=== PATIENT | male | born 1970 | race Caucasian/White ===

== ENCOUNTER 2023-12-08 08:02 | Day surgery (SDC) | payer MEDICARE, MEDICAID ==
[~2023-12-08] VITALS: Ht 182.9 cm; Wt 102.1 kg
[~2023-12-08 08:02] MED LIST: ATOR20TA50 PO; METO-289 PO; NITR0.4S29 SL; RANO500T3 PO
[2023-12-08] MEDS ORDERED: IODIXANOL 320MG/ML 100ML BTL IV ONE ×2 (10:00→10:13)
[2023-12-08] MEDS ORDERED: ANGIOMAX 250 MG VIAL IV ONE (10:03)
[2023-12-08] MEDS ORDERED: fentaNYL CITRATE 100 MCG/2 ML VL ONE (10:03)
[2023-12-08] MEDS ORDERED: HEPARIN SODIUM (PORCINE) 5000 UNITS/ML 1ML VIAL ONE (10:03)
[2023-12-08] MEDS ORDERED: VERAPAMIL 2.5MG/ML INJ 2ML VIAL IV ONE (10:03)
[2023-12-08] MEDS ORDERED: MIDAZOLAM HCL 2MG/2ML 2ml VIAL (1mg/ml) ONE (10:03)
[2023-12-08] MEDS ORDERED: LIDOCAINE 2%HCL (LOCAL ANESTH.) INJ 20ML MDV ONE (10:03)
[2023-12-08] MEDS ORDERED: SODIUM CHL 0.9% 0 ML ONE (10:04)
== END 2023-12-08 12:36 | disposition home or self-care (01) ==
LOC: CATH 08:02
PROVIDERS: ATTEND Internal Medicine
DX: I25.10 Atherosclerotic heart disease of native coronary artery without angina pectoris (principal); I10 Essential (primary) hypertension; Z91.018 Allergy to other foods; Z91.09 Other allergy status, other than to drugs and biological substances; Z79.899 Other long term (current) drug therapy
CPT/HCPCS: 93458; C1894; J1644; J2250; J3010; Q9967; 99152